=== PATIENT | female | born 1995 | race African-American/Black ===

== ENCOUNTER 2017-10-03 14:46 | Emergency (ER) | payer OTHER ==
[2017-10-03] MEDS ORDERED: Ibuprofen 800 MG Tab PO ONE (16:04)
[2017-10-03] MEDS ORDERED: Acetaminophen 500 MG Tab PO ONE (16:05)
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
[2017-10-03 16:14] VITALS: BP 137/76
== END 2017-10-03 16:16 | disposition home or self-care (01) ==
LOC: FB.ED 14:46
DX: S50.871A Other superficial bite of right forearm, initial encounter (principal); S00.83XA Contusion of other part of head, initial encounter; S50.11XA Contusion of right forearm, initial encounter; Y00.XXXA Assault by blunt object, initial encounter
CPT/HCPCS: 99284; A9270

== ENCOUNTER 2017-12-19 12:27 | Emergency (ER) | payer OTHER ==
[2017-12-19] MEDS ORDERED: Bupivacaine 0.5% 30 ML SDV INFILT ONE (12:28)
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
[2017-12-19] MEDS ORDERED: cefTRIAXone 1,000 MG VIAL IM ONE (13:49)
[2017-12-19] MEDS ORDERED: Diphtheria,Pertussis(Acell),Tetanus Vaccine 0.5 ML SDV IM ONE (14:11)
[2017-12-19 15:22] VITALS: BP 120/64
== END 2017-12-19 14:40 | disposition home or self-care (01) ==
LOC: FB.ED 12:27
DX: S61.214A Laceration without foreign body of right ring finger without damage to nail, initial encounter (principal); S92.331A Displaced fracture of third metatarsal bone, right foot, initial encounter for closed fracture; S92.341A Displaced fracture of fourth metatarsal bone, right foot, initial encounter for closed fracture; F17.210 Nicotine dependence, cigarettes, uncomplicated; Z23 Encounter for immunization; W22.01XA Walked into wall, initial encounter
CPT/HCPCS: 12001; 73630-RT; 90471; 90715; 96372; 99283; J0696